=== PATIENT | male | born 1965 | race Hispanic/Latino ===

== ENCOUNTER 2020-01-31 07:29 | Day surgery (SDC) | payer OTHER ==
[~2020-01-31] VITALS: Ht 175.3 cm; Wt 106.6 kg
[~2020-01-31 07:29] MED LIST: LIDOCAINE 1% MDV 20ML VIAL SQ PRN
[2020-01-31] MEDS ORDERED: LR 1,000 ML IV ONE (08:15)
[2020-01-31] MEDS ORDERED: DOXY-350 PO (08:43)
[2020-01-31] MEDS ORDERED: PX S0.65 NARES (08:44)
[2020-01-31] MEDS ORDERED: METHYLENE BLUE 0.5% (5MG/ML) 10 ML AMP (PROVAYBLUE) As Ordered ONE (08:51)
[2020-01-31] MEDS ORDERED: LIDOCAINE W/EPINEPHRINE 1% 20ML VIAL As Ordered ONE (08:51)
[2020-01-31] MEDS ORDERED: OXYMETAZOLINE 0.05% NASAL SPRAY (AFRIN) As Ordered ONE (08:52)
[2020-01-31] MEDS ORDERED: dexameTHASONE 4 MG/ML 1ML VIAL (J1100 PER 1MG) As Ordered ONE (09:28)
[2020-01-31] MEDS ORDERED: SUGAMMADEX SODIUM 500 MG/5 ML VIAL (BRIDION) As Ordered ONE (09:28)
[2020-01-31] MEDS ORDERED: MIDAZOLAM INJ 2MG/2ML VIAL (J2250 PER 1MG) As Ordered ONE (09:28)
[2020-01-31] MEDS ORDERED: propofoL 200 MG/20 ML VIAL As Ordered ONE (09:28)
[2020-01-31] MEDS ORDERED: ROCURONIUM BROMIDE 50 MG/5 ML VIAL As Ordered ONE (09:28)
[2020-01-31] MEDS ORDERED: METOCLOPRAMIDE INJ 10MG/2ML VIAL (J2765 PER 1) As Ordered ONE (09:28)
[2020-01-31] MEDS ORDERED: LIDOCAINE 2% 100MG/5ML SDV (FOR ANES.) As Ordered ONE (09:28)
[2020-01-31] MEDS ORDERED: ONDANSETRON 4MG/2ML VIAL As Ordered ONE (09:28)
[2020-01-31] MEDS ORDERED: fentaNYL 100 MCG/2 ML INJECTION (J3010) As Ordered ONE (09:28)
[2020-01-31] MEDS ORDERED: fentaNYL 100 MCG/2 ML INJECTION (J3010) IV PRN (10:30)
[2020-01-31] MEDS ORDERED: HYDROMORPHONE HCL 0.5 MG/ 0.5 ML SYRINGE (J1170 PER 1) IV PRN (10:30)
[2020-01-31] MEDS ORDERED: ONDANSETRON 4MG/2ML VIAL IV PRN (10:30)
[2020-01-31] MEDS ORDERED: PERCOCET 5MG/325MG TAB PO PRN (10:30)
[2020-01-31] MEDS ORDERED: LR 1,000 ML IV SCH (10:30)
[2020-01-31] MEDS: oxyCODONE 5MG TAB PO PRN ×2 (10:33→11:15)
[2020-01-31] MEDS ORDERED: hydrALAZINE 20MG/ML 1ML VIAL (J0360 PER 20MG) IV SCH (11:45)
[2020-01-31 12:15] VITALS: BP 174/97
--- NOTE | 2020-01-31 16:40 | ECGEPIP ---
[facility] Test Date: 2020-01-31 Pat Name: CARL KWON Department: Room: - Gender: Male Director Web: WILFREDO : 1965 Requested By: DOROTHY GONZALEZ Order Number: [id number] Reading MD: Eric Barfield Measurements Intervals [place] Rate: 64 P: 63 [place]: 175 QRS: 60 QRSD: 89 T: -14 QT: 412 QTc: 426 Interpretive Statements SINUS RHYTHM WITH FREQUENT SUPRAVENTRICULAR PREMATURE COMPLEXES NONSPECIFIC T-WAVE ABNORMALITY No prior ECG available for comparison at the time of interpretation. Electronically Signed on 01-31-2020 16:40:15 EST by Eric Barfield
== END 2020-01-31 12:30 | disposition home or self-care (01) ==
LOC: M SDC 07:29
PROVIDERS: ATTEND Specialist
DX: J34.2 Deviated nasal septum (principal); J31.0 Chronic rhinitis; G47.30 Sleep apnea, unspecified; F43.10 Post-traumatic stress disorder, unspecified; Z79.899 Other long term (current) drug therapy
CPT/HCPCS: 30140; 30520; 88300; 93005; J1100; J2250; J2405; J2765; J3010; Q9968